=== PATIENT | male | born 1960 | race Caucasian/White ===

== ENCOUNTER 2020-03-15 12:27 | Emergency (ER) | payer OTHER ==
[~2020-03-15] VITALS: Ht 167.6 cm; Wt 68.0 kg
[2020-03-15] MEDS ORDERED: IRBESARTAN300 MG PO (12:51)
[2020-03-15] MEDS ORDERED: MEDROLPACK PO (17:13)
[2020-03-15] MEDS ORDERED: ZITHROMAX500 MG PO (17:13)
== END 2020-03-15 18:01 | disposition home or self-care (01) ==
LOC: ER 12:27
DX: U07.1 COVID-19 (principal); J06.9 Acute upper respiratory infection, unspecified; B34.9 Viral infection, unspecified

== ENCOUNTER 2020-03-30 01:57 | Emergency (ER) | payer OTHER ==
[~2020-03-30] VITALS: Ht 167.6 cm; Wt 68.0 kg
[~2020-03-30 01:57] MED LIST: IRBESARTAN300 MG PO; MEDROLPACK PO; ZITHROMAX500 MG PO
[2020-03-30] MEDS ORDERED: CIPRO500 MG PO (05:57)
[2020-03-30] MEDS ORDERED: KETO10TA2 PO (05:57)
[2020-03-30] MEDS ORDERED: TAMS0.4C PO (05:57)
== END 2020-03-30 06:07 | disposition home or self-care (01) ==
LOC: ER 01:57
DX: N20.0 Calculus of kidney (principal); R10.32 Left lower quadrant pain

== ENCOUNTER 2020-08-15 08:00 | Outpatient (CLI) | payer OTHER ==
[~2020-08-15 08:00] MED LIST changes: +CIPRO500 MG PO; +KETO10TA2 PO; +TAMS0.4C PO
== END 2020-08-15 08:30 | disposition home or self-care (01) ==
LOC: PPH VACUNA 08:00
DX: Z23 Encounter for immunization (principal)

== ENCOUNTER 2020-09-06 10:09 | Outpatient (CLI) | payer OTHER | END 2020-09-06 10:20 | disposition home or self-care (01) | LOC: RAD 10:09 | PROVIDERS: ATTEND Urology | DX: N20.0 Calculus of kidney (principal) ==

== ENCOUNTER 2020-11-22 11:56 | Outpatient (CLI) | payer OTHER | END 2020-11-22 18:50 | disposition home or self-care (01) | LOC: LAB 11:56 | PROVIDERS: ATTEND Urology | DX: N20.0 Calculus of kidney (principal) ==

== ENCOUNTER → 2020-12-12 12:54 | Outpatient (CLI) | payer OTHER | END | disposition home or self-care (01) | LOC: LAB 12:54 | PROVIDERS: ATTEND Urology | DX: N20.0 Calculus of kidney (principal) ==